=== PATIENT | female | born 1945 | race Caucasian/White ===

== ENCOUNTER 2020-07-27 10:06 | Outpatient (RCR) | payer MEDICARE, OTHER, SELFPAY ==
--- NOTE | 2020-07-27 15:05 | MHC.PT.EP ---
[facility] [place] [facility] [place] [facility] [place] [facility] [address] Barbara Henson [address] [phone] F: [phone] F: [phone] F: [phone] F: [phone] Physical Therapy Plan of Care Date of Evaluation: Date of Surgery: Diagnosis: dizziness/imbalance Assessment: The patient arrived reporting imbalance with position change and whole body movement. She is negative for positional vertigo, but she is showing clear signs of vestibular hypofunction. She has imbalance on soft surfaces and with NBOS and a weakness in her VOR. She is also having loss of hearing, fullness in ears, and constant water in my ear which may indicate a Labyrinthitis. She is an excellent candidate for skilled PT Frequency and Duration: The patient will be seen 2x/week x 4 weeks. Short Term Goals: Pt to be able to move in her kitchen without LOB. Pt to be able to get dressed and perform basic ADL's without loss of balance. Skilled Nursing Goals: 1. pt to be able to return to community ambulation safely without significant veering or loss of balance one week prior to d/c. 2. For the patient to be able to functionally move in all planes and directions without provocation of dizziness to show return to PLOF. 3. pt to be able to show good static standing with no LOB with v/h/d head turns to show functional static balance. Treatment Plan: Modalities to reduce pain, spasms and effusion. Manual therapy to restore motion and function. Therapeutic exercise to improve strength and flexibility. Neuromuscular re-education for posture and balance. Therapeutic activities to return to functional activities of daily living. Electronically signed by: Amee Reyna PT DPT Please sign and return to therapist. Thank you for your referral.
== END 2020-12-01 09:31 | disposition home or self-care (01) ==
LOC: HO.PT 10:06
PROVIDERS: PCP Internal Medicine; Visit Provider Internal Medicine
DX: R42 Dizziness and giddiness (principal)
CPT/HCPCS: 97112; 97162

== ENCOUNTER 2020-08-05 12:50 | Outpatient (REF) | payer MEDICARE, OTHER, SELFPAY ==
--- NOTE | ~2020-08-05 | MM_ITS ---
EXAMINATION: BONE DENSITOMETRY CLINICAL INDICATION: Menopause. COMPARISON: None (current study represents initial baseline exam). TECHNIQUE: Using a [employer] Software DXA System (software version: 13.1) manufactured by [employer], dual-energy x-ray absorptiometry was performed of the lumbar spine and right hip. Patient with left hip replacement. The images are of good technical quality. Summary results are attached. FINDINGS: AP SPINE L1-L4: BMD 1.061 g/cm2, Z-score 0.5, T-score -1.0, normal. RIGHT FEMUR, NECK: BMD 0.791 g/cm2, Z-score 0.0, T-score -1.8, osteopenia. RIGHT FEMUR, TOTAL: BMD 0.864 g/cm2, Z-score 0.5, T-score -1.1, osteopenia. IDENTIFIED RISK FACTORS: Menopause, history of fracture (adult). HISTORY OF FRACTURE: Elbow, wrist. MEDICATIONS: Calcium or multivitamin. Vitamin D. MM/XR DEXA axial skeleton IMPRESSION: 1. DIAGNOSIS: Osteopenia based on the lowest T-score value of -1.8 in the femoral neck applying World Health Organization criteria. 2. 10-YEAR FRACTURE RISK PREDICTION, FRAX: Major osteoporotic fracture (clinical spine, forearm, hip or shoulder) 19.1%. Hip fracture 4.3%. 3. Treatment Recommendations: NOF guidelines recommend consideration for treatment in postmenopausal women and men age 50 and older presenting with the following: -A hip or vertebral (clinical or morphometric) fracture. -T-score less than or equal to -2.5 at the femoral neck or spine after appropriate evaluation to exclude secondary causes. -Low bone mass at the hip or spine and a 10-year fracture probability by FRAX of greater than or equal to 3% for hip fracture or greater than or equal to 20% for major osteoporotic fracture based on the [place] adapted WHO algorithm. 4. Other Recommendations: All treatment decisions require clinical judgment and consideration of individual patient factors, including patient preferences, comorbidities, previous drug use, risk factors not captured in the FRAX model (e.g. frailty, falls, vitamin D deficiency, increased bone turnover, interval significant decline in bone density) and possible under or overestimation of fracture risk by FRAX. Additional medical evaluation for secondary cause of low bone mineral density may be appropriate. FUTURE SCAN RECOMMENDATION: People with diagnosed cases of osteoporosis or at high risk for fracture should have regular bone mineral density tests. For patients eligible for Medicare, routine testing is allowed once every 2 years. The testing frequency can be increased to one year for patients who have rapidly progressing disease, those who are receiving or discontinuing medical therapy to restore bone mass, or have additional risk factors.
== END 2020-08-05 12:51 | disposition home or self-care (01) ==
LOC: HO.MAMMO 12:50
PROVIDERS: Visit Provider Internal Medicine
DX: Z13.820 Encounter for screening for osteoporosis (principal); Z78.0 Asymptomatic menopausal state
CPT/HCPCS: 77080

== ENCOUNTER 2022-10-25 07:11 | Outpatient (REF) | payer MEDICARE, SELFPAY ==
[2022-10-25 07:38] LABS: Alanine Aminotransferase 29 U/L (0-31); Albumin Level 4.5 g/dL (3.5-5.0); Alkaline Phosphatase 64 U/L (39-117); Anion Gap 15 (12-20); Aspartate Amino Transferase 22 U/L (5-31); Bilirubin Total 0.8 mg/dL (0.0-1.0); Blood Urea Nitrogen 13 mg/dL (9-16); Calcium 9.9 mg/dL (8.4-10.2); Carbon Dioxide 23 mmol/L (22-29); Chloride 109 mmol/L (96-108); Cholesterol 230 mg/dL; Estimated Glomerular Filt Rate > 60; Glucose Fasting 96 mg/dL (60-99); HDL Cholesterol 59 mg/dL; LDL Cholesterol Calculated 145 mg/dl; Potassium 4.3 mmol/L (3.3-5.1); Sodium 143 mmol/L (135-145); Total Protein 6.9 g/dL (6.5-8.0); Triglycerides 134 mg/dL
== END 2022-10-25 07:12 | disposition home or self-care (01) ==
LOC: HO.LAB 07:11
PROVIDERS: PCP Internal Medicine; Visit Provider Internal Medicine
DX: E78.5 Hyperlipidemia, unspecified (principal); I10 Essential (primary) hypertension
CPT/HCPCS: 36415; 80053; 80061

== ENCOUNTER 2022-11-07 12:22 | Outpatient (AMB) | payer MEDICARE, SELFPAY ==
--- NOTE | 2022-11-07 13:36 | AM.OFFWIN_ITS ---
Intake Vital Signs 11/07/22 13:38 Weight 170 lb BP 140/88 H Blood Pressure Location Rt brachial Position Sitting Pulse 88 Pulse Source Pulse Oximeter Temp 97.5 F Temp Source Oral Pulse Oximetry (%) 97 Oxygen Delivery Method Room Air Intake Visit Reasons: EST/righ rib pain/possible sinus infection Intake Note: Patient here for sinus drainage for about 1 month. She also states that she has right rib pain. Patient Tobacco Use Status: Never used Tobacco Allergies Sulfa (Sulfonamide Antibiotics) Allergy (Intermediate, Verified 11/07/22 13:40) hives benzonatate Adverse Reaction (Intermediate, Verified 11/07/22 13:40) Eye burning Medication List - Last Reconciled 11/07/22 by Austen Goddard MD albuterol sulfate 90 mcg/actuation 1 inh inhalation QID PRN alprazolam 0.5 mg PO TID PRN amlodipine 5 mg PO DAILY atorvastatin 20 mg PO BEDTIME 90 days azithromycin For 250 mg dose pack: take 500 mg today (day 1), then 250 mg for 4 days (days 2-5) PO benzonatate 200 mg PO TID 5 days codeine-guaifenesin 10-100 mg/5 mL 5 mL PO Q6H PRN 7 days fluoxetine 20 mg PO DAILY gabapentin 100 mg PO BID meclizine 25 mg PO TID PRN 30 days valacyclovir 1,000 mg PO TID Do you need a note to return to daycare/school/sports/work: No HPI EST/righ rib pain/possible sinus infection HPI Details Patient presents for a sick visit. Reporting symptoms of sinus congestion, sore throat and difficulty swallowing. Low-grade fever. No family member is sick. No recent travel. Patient reports symptoms of malaise and fatigue. [facility] Medical History (Updated 10/29/22 @ 11:06 by Pushpa Rob MD) Breast cancer Depression with anxiety Dizziness Essential hypertension Obese Postmenopausal Surgical History History of hip replacement History of lumpectomy of right breast Family History Father Coronary artery disease Mother Alzheimer disease Breast cancer Social History Alcohol intake: current Alcohol intake frequency: holidays/special occasions only Alcohol type: wine Patient Tobacco Use Status: Never used Tobacco Cognitive needs: No Hearing needs: No Vision needs: No Physical Exam Vital Signs: Last Vital Signs Temp 97.5 F 11/07/22 13:38 Pulse 88 11/07/22 13:38 BP 140/88 H 11/07/22 13:38 Pulse Ox 97 11/07/22 13:38 Oxygen Delivery Method Room Air 11/07/22 13:38 Const General: cooperative and healthy appearing Nutritional Appearance: well nourished Orientation/consciousness: patient oriented x3 Limitations: no limitations HEENT Head: Yes normal to inspection Eyes General: appearance normal, both eyes and all related structures Neck Neck: Yes normal visual inspection Chest Chest palpation & inspection: normal palpation of entire chest wall Resp Effort & Inspection: normal respiratory effort Neuro General: patient oriented x3 Assessment & Plan Assessment & Plan (1) Bronchitis: Code(s): J40 - Bronchitis, not specified as acute or chronic Plan: Antibiotics ordered. Increase fluid intake. Tylenol for aches and pains. If symptoms worsen, follow-up here for a recheck. Coding Level of Care Code Est Pt Level 3 (56840) Diagnoses Bronchitis J40
[2022-11-07 13:38] VITALS: BP 140/88; PULSE 88; TEMP 36.4; O2SAT 97
== END 2022-11-07 14:15 | disposition home or self-care (01) ==
PROVIDERS: PCP Internal Medicine; Visit Provider Internal Medicine
DX: J40 Bronchitis, not specified as acute or chronic (principal)
CPT/HCPCS: 99213

== ENCOUNTER 2023-06-28 10:42 | Outpatient (REF) | payer MEDICARE, SELFPAY ==
[2023-06-28 11:17] LABS: Basophils Percent Auto 0.5 % (0-2); Eosinophils Absolute Auto 0.2 X10*3/uL (0.0-0.4); Hematocrit 43.4 % (37.0-47.0); Hemoglobin 14.1 g/dl (12.0-16.0); Imm Gran Abs Auto 0.01 X10*3/uL (0.00-0.03); Imm Gran Pct Auto 0.1 % (0.0-0.4); Lymphocytes Absolute Auto 2.7 X10*3/uL (1.2-4.9); Lymphocytes Percent Auto 36.3 % (20-40); MANUAL DIFF FLAG SCAN; Mean Corpuscular HGB Conc 32.5 g/dl (31.0-35.0); Mean Corpuscular Hemoglobin 30.8 pg (27.0-33.0); Mean Corpuscular Volume 94.8 fL (80.0-98.0); Monocytes Absolute Auto 0.4 X10*3/uL (0.1-1.2); Monocytes Percent Auto 5.7 % (2-11); Neutrophils Absolute Auto 4.2 x10*3/uL (2.0-8.3); Neutrophils Percent Auto 55.4 % (45-73); PLT CLUMP 1; Red Blood Count 4.58 X10*6/uL (4.20-5.50); Red Cell Distribution Width 13.3 % (11.0-16.0); SCAN SMEAR FLAG 1; White Blood Count 7.5 X10*3/uL (4.8-10.8)
[2023-06-28 11:37] LABS: Platelet Count 190 X10*3/uL (160-400)
[2023-06-28 11:38] LABS: Mean Platelet Volume 10.2 fL (9.4-12.3); SLIDE REVIEW VERIFIED
[2023-06-28 11:50] LABS: Cholesterol 141 mg/dL (<200); HDL Cholesterol 60 mg/dL (>40); LDL Cholesterol Calculated 58 mg/dL (<100); Triglycerides 116 mg/dL (<150)
== END 2023-06-28 10:43 | disposition home or self-care (01) ==
LOC: HO.LAB 10:42
PROVIDERS: PCP Internal Medicine; Visit Provider Internal Medicine
DX: E78.5 Hyperlipidemia, unspecified (principal); D64.9 Anemia, unspecified; C91.10 Chronic lymphocytic leukemia of B-cell type not having achieved remission
CPT/HCPCS: 36415; 80061; 85025

== ENCOUNTER 2023-07-04 16:13 | Outpatient (AMB) | payer MEDICARE, SELFPAY ==
--- NOTE | 2023-07-04 16:22 | MHC.PC.OV ---
Vital Signs 07/04/23 16:23 Height 5 ft 2 in Weight 151 lb BMI 27.6 BP 120/82 Blood Pressure Location Lt brachial Position Sitting Intake Visit Reasons: f/u for hip surgery 05/11/23 Intake Note: Patient here for follow up Hip surgery right side Change Director Required: No Accompanied by: Self / Same As Patient Allergies Sulfa (Sulfonamide Antibiotics) Allergy (Intermediate, Verified 07/04/23 16:44) hives benzonatate Adverse Reaction (Intermediate, Verified 07/04/23 16:44) Eye burning Medication List - Last Reconciled 07/04/23 by Pushpa Rob MD amlodipine 5 mg PO DAILY atorvastatin 20 mg PO BEDTIME fluoxetine 20 mg PO DAILY Tobacco use date assessed: 07/04/23 Fall risk assessment: No Falls in past year Last assessed Fall Risk: 07/04/23 Dental Screening Dental Screen Date: 07/04/23 Did you have a dental visit in the last 12 months?: Yes Did you have a dental problem in the last 6 months where you did not have access to dental care?: No Was dental information given to patient?: Patient has dentist HPI HPI Comments History of Present Illness Details This is an 78-year-old female with hypertension, dyslipidemia, mild major depression, history of breast cancer and CLL that comes today for follow-up on her conditions. Blood pressure stable. Lipid panel will be order. Depression well controlled with SSRIs. Breast cancer and CLL are follow by Oncology. Denies any chest pain or shortness a breath. [facility] Medical History (Updated 07/04/23 @ 19:57 by Pushpa Rbo MD) Dizziness Postmenopausal Breast cancer Depression with anxiety Obese Essential hypertension Surgical History (Updated 07/04/23 @ 16:39 by LISANDRA Lee) History of knee surgery History of hip replacement History of lumpectomy of right breast Family History Father Coronary artery disease Mother Alzheimer disease Breast cancer Social History (Updated 07/04/23 @ 16:40 by LISANDRA Lee) Housing: House Alcohol intake: current Alcohol intake frequency: holidays/special occasions only Alcohol type: wine Patient Tobacco Use Status: Never used Tobacco Smoked in Last 30 Days: No e-Cigarette/Vaping Use: Never Used Second Hand Smoke Exposure: No service: No Current occupational status: retired Cognitive needs: No Hearing needs: No Vision needs: No Questionnaire PHQ-9 Over the last 2 weeks, how often have you been bothered by any of the following problems? 1. Little interest or pleasure in doing things: not at all 2. Feeling down, depressed, or hopeless: not at all 3. Trouble falling or staying asleep, or sleeping too much: not at all 4. Feeling tired or having little energy: not at all 5. Poor appetite or overeating: not at all 6. Feeling bad about yourself - or that you are a failure or have let yourself or your family down: not at all 7. Trouble concentrating on things, such as reading the newspaper or watching television: not at all 8. Moving or speaking so slowly that other people could have noticed. Or the opposite - being so fidgety or restless that you have been moving around a lot more than usual: not at all 9. Thoughts that you would be better off or of hurting yourself in some way: not at all Total score: 0 Depression Screening Interpretation: Negative Depression Screening Done: Yes 69730 - PHQ-9 Billing: Yes Source: Developed by Drs. José Luis Gates, Lizzy Bennett, Paulo Pedroza and colleagues, with an educational yanique from [employer] Thrive Questionnaire Date Thrive assessed: 07/04/23 I am a: Patient What is your living situation today?: I have a steady place to live Within the past 12 months, did the food you bought not last and you didn't have the money to get more?: Never true Within the past 12 months, did you worry whether your food would run out before you got money to buy more?: Never true Do you have trouble paying for medicines?: No Do you have trouble getting transportation to medical appointments?: No Do you have trouble paying your heating and electricity bill?: No Do you have trouble taking care of your child, family member or friend?: No Do you have trouble with day-to-day activities such as bathing, preparing meals, shopping, managing finances, etc.?: No Are you currently unemployed and looking for a job?: No Are you interested in more education?: No Please select the resources that you would like help with: None Currently or been in a relationship where the following occur: no concerns reported THRIVE Score: 0 AUDIT C Alcohol Use Questionnaire (AUDIT-C) 1. How often do you have a drink containing alcohol?: Monthly or less 2. How many drinks containing alcohol do you have on a typical day when you are drinking?: 1 or 2 3. How often do you have six or more drinks on one occasion?: Never Total Score: 1 COSME-7 AMB Questionnaire COSME-7 Date COSME - 7 assessed: 07/04/23 Feeling nervous, anxious, or on edge: 0 = Not at all Not being able to stop or control worryin = Not at all Worrying too much about different things: 0 = Not at all Trouble relaxin = Not at all Being so restless that it is hard to sit still: 0 = Not at all Becoming easily annoyed or irritable: 0 = Not at all Feeling afraid as if something awful might happen: 0 = Not at all Total COSME-7 score (0-4 normal; 5-9 mild; 10-14 moderate; 15-21 severe): 0 Source: Developed by Drs. José Luis Gates, Lizzy Bennett, Paulo Pedroza and colleagues, with an educational yanique from [employer] COSME-7 Assessment Billing COSME-7 Assessment Tool: COSME-7 Assessment 80609 Review of Systems Const All systems reviewed & are unremarkable except as noted in HPI and below Eyes Reports no additional complaints, Denies change in vision and Denies other visual disturbances Card Denies chest pain at rest, Denies chest pain with activity, Denies edema, Denies irregular heart rhythm, Denies claudication, Denies dyspnea, Denies dyspnea on exertion, Denies orthopnea, Denies paroxysmal nocturnal dyspnea and Denies slow heart rate Resp Denies cough, Denies dyspnea and Denies dyspnea on exertion GI Denies abdominal pain, Denies change in bowel habits, Denies excessive flatus, Denies nausea and Denies vomiting Denies urinary incontinence, Denies urinary hesitancy and Denies urinary urgency Physical exam (Primary Care) Vital Signs: Last Vital Signs BP 120/82 07/04/23 16:23 BMI result Body Mass Index 27.6 Tobacco/Smoking Status: Tobacco use Status Tobacco use date assessed 07/04/23 07/04/23 16:42 Patient Tobacco Use Status Never used Tobacco 07/04/23 16:40 e-Cigarette/Vaping Use Never Used 07/04/23 16:42 PHQ-9: PHQ-9 Score PHQ-9: Total score 0 07/04/23 16:46 Depression Screening Interpretation: Negative Thrive Assessment: Date of Thrive Assessment Date Thrive assessed 07/04/23 07/04/23 16:42 Currently or been in a relationship where the following occur: no concerns reported Resp Effort & Inspection: normal respiratory effort Auscultation: clear to auscultation bilaterally Cardio Jugular venous distension: no JVD Rate: regular rate Rhythm: regular rhythm Heart sounds: S1 normal heart sound present and S2 normal heart sound present Extrem General: Yes full ROM Psych Appearance: grossly normal Assessment and Plan Assessment & Plan (1) CLL (chronic lymphocytic leukemia): Code(s): C91.10 - Chronic lymphocytic leukemia of B-cell type not having achieved remission Plan: Follow-up with Oncology. (2) Breast cancer: Comment: right breast cancer follow by [facility] Oncology Code(s): C50.919 - Malignant neoplasm of unspecified site of unspecified female breast Plan: Follow-up with oncology. (3) Essential hypertension: Code(s): I10 - Essential (primary) hypertension Plan: Continue amlodipine. Blood pressure goal is equal or less than 130/80. (4) Mild major depression: Code(s): F32.0 - Major depressive disorder, single episode, mild Plan: Continue fluoxetine. (5) Dyslipidemia: Code(s): E78.5 - Hyperlipidemia, unspecified Plan: Continue statins. Orders: Orders Lipid Panel 6 Months E78.5 - Hyperlipidemia, unspecified Comprehensive [place]. Panel Fast 6 Months I10 - Essential (primary) hypertension Coding Level of Care Code Est Pt Level 4 (03449) Diagnoses CLL (chronic lymphocytic leukemia) C91.10 Breast cancer C50.919 Essential hypertension I10 Mild major depression F32.0 Dyslipidemia E78.5 Additional Codes COSME-7 Assessment Billing - COSME-7 Assessment Tool: COSME-7 Assessment 12038 ([id number]) Time Spent (min) 23
[2023-07-04 16:23] VITALS: BP 120/82; BMI 27.6
== END 2023-07-04 17:18 | disposition home or self-care (01) ==
PROVIDERS: PCP Internal Medicine; Visit Provider Internal Medicine
DX: C91.10 Chronic lymphocytic leukemia of B-cell type not having achieved remission (principal); C50.919 Malignant neoplasm of unspecified site of unspecified female breast; I10 Essential (primary) hypertension; F32.0 Major depressive disorder, single episode, mild; E78.5 Hyperlipidemia, unspecified
CPT/HCPCS: 99214

== ENCOUNTER 2023-12-28 09:08 | Outpatient (REF) | payer MEDICARE, SELFPAY ==
[2023-12-28 10:23] LABS: Alanine Aminotransferase 23 U/L (0-31); Albumin Level 4.4 g/dL (3.5-5.0); Alkaline Phosphatase 69 U/L (39-117); Anion Gap 11 (12-20); Aspartate Amino Transferase 19 U/L (5-31); Bilirubin Total 0.6 mg/dL (0.0-1.0); Blood Urea Nitrogen 11 mg/dL (9-16); Calcium 9.8 mg/dL (8.4-10.2); Carbon Dioxide 27 mmol/L (22-29); Chloride 109 mmol/L (96-108); Cholesterol 221 mg/dL (<200); Estimated Glomerular Filt Rate > 60; Glucose Fasting 91 mg/dL (60-99); HDL Cholesterol 65 mg/dL (>40); LDL Cholesterol Calculated 128 mg/dL (<100); Potassium 4.4 mmol/L (3.3-5.1); Sodium 143 mmol/L (135-145); Total Protein 6.6 g/dL (6.5-8.0); Triglycerides 144 mg/dL (<150)
== END 2023-12-28 09:09 | disposition home or self-care (01) ==
LOC: HO.LAB 09:08
PROVIDERS: PCP Internal Medicine; Visit Provider Internal Medicine
DX: I10 Essential (primary) hypertension (principal); E78.5 Hyperlipidemia, unspecified
CPT/HCPCS: 36415; 80053; 80061

== ENCOUNTER 2024-08-14 17:22 | Outpatient (AMB) | payer MEDICARE, SELFPAY ==
--- NOTE | 2024-08-14 17:26 | A.OFFPC_ITS ---
Vital Signs 08/14/24 17:40 Height 5 ft 2 in Weight 152 lb BMI 27.8 BP 152/100 H Blood Pressure Location Lt brachial Position Sitting Intake Visit Reasons: Annual Physical - see comments Intake Note: Patient here for a physical exam Life Cycle Assessment Analyst Required: No Accompanied by: Self / Same As Patient Allergies Sulfa (Sulfonamide Antibiotics) Allergy (Intermediate, Verified 08/14/24 17:55) hives benzonatate Adverse Reaction (Intermediate, Verified 08/14/24 17:55) Eye burning kysqali Adverse Reaction (Intermediate, Uncoded 08/14/24 18:01) Depression Medication List - Last Reconciled 08/14/24 by Pushpa Rob MD amlodipine 5 mg PO DAILY fluoxetine 20 mg PO DAILY 90 days letrozole 2.5 mg PO DAILY rosuvastatin 5 mg PO BEDTIME 90 days trazodone 50 mg PO BEDTIME PRN 30 days Tobacco use date assessed: 08/14/24 Fall risk assessment: No Falls in past year Last assessed Fall Risk: 08/14/24 Dental Screening Dental Screen Date: 08/14/24 Did you have a dental visit in the last 12 months?: Yes Did you have a dental problem in the last 6 months where you did not have access to dental care?: No Was dental information given to patient?: Patient has dentist HPI HPI Comments History of Present Illness Details The patient is an 79-year-old female presenting for her physical exam. She was previously prescribed this for her history of breast cancer but developed severe depression, anxiety, and thinning hair as side effects of Kisqali. On stopping the medication three weeks ago, she reports significant improvement in her emotional state, focus, and overall sense of well-being. She has a complicated medical history that includes osteoarthritis, osteopenia, and spinal stenosis. Surgical history includes hip and knee replacements, with a recent trigger finger release due to severe arthritis. She now manages her arthritis with Tylenol due to severe drug allergies, including sulfa drugs. She has also been utilizing cortisone injections for knee pain associated with osteoarthritis, though her last injection appointment was postponed. Cardiovascular history includes essential hypertension and hyperlipidemia, for which she takes Amlodipine and Rosuvastatin respectively. Her breast cancer is in remission, and she continues Letrozole as part of her management regime. She takes Trazodone to aid in sleep, previously benefitting during the heightened anxiety and depressive episodes linked to Kisqali. She actively participates in weight management and adjusts her lifestyle practices as needed, having experienced success with prior structured diet programs. Notably, her social habits have shifted post-cancer diagnosis, giving up alcohol and never having smoked, aligning with her health-conscious goals. - Pneumonia vaccination confirmed. - Regular EKGs performed monthly, result s not specified but documented. - CBC, comprehensive metabolic panel, ma gnesium, phosphorus, bone scan, and o ther tests reviewed for health monitoring. - Continuous medication management for h ypertension, hyperlipidemia, and breast cancer prevention. - Engaged in weight management programs and healthy lifestyle changes post- cancer diagnosis. [facility] Medical History (Updated 08/14/24 @ 18:13 by Pushpa Rob MD) CLL (chronic lymphocytic leukemia) Dizziness Postmenopausal Breast cancer Depression with anxiety Obese Essential hypertension Surgical History (Updated 08/14/24 @ 18:03 by Pushpa Rob MD) S/P trigger finger release History of knee surgery History of hip replacement History of lumpectomy of right breast Family History (Updated 08/14/24 @ 17:29 by Sarthak Barry Rashaad) Father Coronary artery disease Mother Alzheimer disease Social History (Updated 08/14/24 @ 18:04 by Pushpa Rob MD) Housing: House Alcohol intake: former Patient Tobacco Use Status: Never used Tobacco e-Cigarette/Vaping Use: Never Used Second Hand Smoke Exposure: No service: No Current occupational status: retired Cognitive needs: No Hearing needs: No Vision needs: No Questionnaire PHQ-9 Over the last 2 weeks, how often have you been bothered by any of the following problems? 1. Little interest or pleasure in doing things: not at all 2. Feeling down, depressed, or hopeless: not at all 3. Trouble falling or staying asleep, or sleeping too much: not at all 4. Feeling tired or having little energy: not at all 5. Poor appetite or overeating: not at all 6. Feeling bad about yourself - or that you are a failure or have let yourself or your family down: not at all 7. Trouble concentrating on things, such as reading the newspaper or watching television: not at all 8. Moving or speaking so slowly that other people could have noticed. Or the opposite - being so fidgety or restless that you have been moving around a lot more than usual: not at all 9. Thoughts that you would be better off or of hurting yourself in some way: not at all Total score: 0 Depression Screening Interpretation: Negative Depression Screening Done: Yes 97721 - PHQ-9 Billing: Yes Source: Developed by Drs. José Luis Gates, Lizzy Bennett, Paulo Pedroza and colleagues, with an educational yanique from [employer]. Thrive Questionnaire Date Thrive assessed: 08/14/24 I am a: Patient What is your living situation today?: I have a steady place to live Within the past 12 months, did the food you bought not last and you didn't have the money to get more?: Never true Within the past 12 months, did you worry whether your food would run out before you got money to buy more?: Never true Do you have trouble paying for medicines?: No Do you have trouble getting transportation to medical appointments?: No Do you have trouble paying your heating and electricity bill?: No Do you have trouble taking care of your child, family member or friend?: No Do you have trouble with day-to-day activities such as bathing, preparing meals, shopping, managing finances, etc.?: No Are you currently unemployed and looking for a job?: No Are you interested in more education?: No Please select the resources that you would like help with: None Currently or been in a relationship where the following occur: No concerns reported THRIVE Score: 0 AUDIT C Alcohol Use Questionnaire (AUDIT-C) 1. How often do you have a drink containing alcohol?: Never Total Score: 0 Score Reviewed/Action Taken: No COSME-7 AMB Questionnaire COSME-7 Date COSME - 7 assessed: 08/14/24 Feeling nervous, anxious, or on edge: 0 = Not at all Not being able to stop or control worryin = Not at all Worrying too much about different things: 0 = Not at all Trouble relaxin = Not at all Being so restless that it is hard to sit still: 0 = Not at all Becoming easily annoyed or irritable: 0 = Not at all Feeling afraid as if something awful might happen: 0 = Not at all Total COSME-7 score (0-4 normal; 5-9 mild; 10-14 moderate; 15-21 severe): 0 Source: Developed by Drs. José Luis Gates, Lizzy Bennett, Paulo Pedroza and colleagues, with an educational yanique from [employer]. Review of Systems Const All systems reviewed & are unremarkable except as noted in HPI and below Card Denies chest pain at rest, Denies chest pain with activity, Denies edema, Denies irregular heart rhythm, Denies claudication, Denies dyspnea, Denies dyspnea on exertion, Denies orthopnea, Denies paroxysmal nocturnal dyspnea and Denies slow heart rate Resp Denies cough, Denies dyspnea and Denies dyspnea on exertion Denies urinary incontinence, Denies urinary hesitancy and Denies urinary urgency Musc Denies abnormal gait, Denies atrophy, Denies deformity and Denies limited range of motion Skin/Breast Denies bleeding lesions, Denies changing lesions and Denies rash Neuro Denies abnormal gait, Denies behavioral changes, Denies confusion and Denies lack of coordination Psych Denies behavioral changes and Denies confusion Physical exam (Primary Care) Vital Signs: Last Vital Signs BP 152/100 H 08/14/24 17:40 BMI result Body Mass Index 27.8 Tobacco/Smoking Status: Tobacco use Status Tobacco use date assessed 08/14/24 08/14/24 17:33 Patient Tobacco Use Status Never used Tobacco 08/14/24 17:30 e-Cigarette/Vaping Use Never Used 08/14/24 17:30 PHQ-9: PHQ-9 Score PHQ-9: Total score 0 08/14/24 18:06 Depression Screening Interpretation: Negative Thrive Assessment: Date of Thrive Assessment Date Thrive assessed 08/14/24 08/14/24 17:30 Currently or been in a relationship where the following occur: No concerns reported Const General: No confusion Orientation/consciousness: patient oriented x3 and No confusion HENMT Head: Yes normal to inspection, Yes normocephalic and Yes atraumatic Ears: external ears normal Eyes General: appearance normal, both eyes and all related structures Eyelids: Yes eyelids normal Conjunctivae: conjunctivae normal Neck Neck: Yes normal visual inspection and Yes supple Resp Effort & Inspection: normal respiratory effort Auscultation: clear to auscultation bilaterally Cardio Jugular venous distension: no JVD Rate: regular rate Rhythm: regular rhythm Heart sounds: S1 normal heart sound present and S2 normal heart sound present GI Inspection: Yes normal to inspection Palpation (GI): Soft to palpation and nontender Auscultation: normal bowel sounds Skin General skin exam: no rashes or lesions noted Neuro General: patient oriented x3, no focal motor deficits and No confusion Extrem General: Yes full ROM Psych Appearance: grossly normal Coding Level of Care Code Est Pt Prev Care >65y(77587) Diagnoses Physical exam Z00.00 Mild major depression F32.0 Breast cancer C50.919 Additional Codes PHQ-9 - 84171 - PHQ-9 Billing: Yes ([id number]) Time Spent (min) 35 Assessment & Plan Assessment & Plan (1) Physical exam: Code(s): Z00.00 - Encounter for general adult medical examination without abnormal findings Category: Medical (2) Mild major depression: Code(s): F32.0 - Major depressive disorder, single episode, mild Category: Medical (3) Breast cancer: Comment: right breast cancer follow by [facility] Oncology Code(s): C50.919 - Malignant neoplasm of unspecified site of unspecified female breast Category: Medical Plan We discussed the improved symptoms post-Kisqali discontinuation, maintaining her other medications as there are no reported side effects. Her lifestyle mo difications remain instrumental for weight management, and further pharmaceutical interventions are deferred to avoid exacerbating issues. Osteoarthritis is managed conservatively, awaiting rescheduling of her corticosteroid injection. Follow-up includes reassessment of blood pressure, bone density testing, and continued management for her chronic conditions in a multidisciplinary approach while she self-monitors her blood pressure. Telehealth consultations will be utilized where possible to align with patient comfort and accessibility. Patient was informed and verbally consented to the use of an ambient scribe for clinic note documentation during this visit. I spoke with the patient about the discontinuation of Kisqali, noting her improved mental health. I recommended continuing with her current medication plan, prioritizing minimal side-effect options. We discussed the benefits of lifestyle modification over medication for weight management given her past success. We planned further investigation into her essential hypertension and osteopenia through follow-up bone density scans. The patient agreed to a telehealth appointment for ongoing blood pressure management. There was di scussion regarding the patient's significant improvement in function and mood following medication changes. Orders: Orders Lipid Panel Today E78.5 - Hyperlipidemia, unspecified Vitamin D 25-OH Total Today E55.9 - Vitamin D deficiency, unspecified XR DEXA axial skeleton Today Z78.0 - Asymptomatic menopausal state Comprehensive [place]. Panel Fast Today Z00.00 - Encounter for general adult medical examination without abnormal findings Patient Instructions: - Continue taking all current medications as prescribed. - Practice healthy lifestyle choices and continue with diet and exercise modifications. - Monitor blood pressure daily and keep a log for three weeks. - Prepare for follow-up telehealth visit regarding blood pressure. - Seek knee injection rescheduling for osteoarthritis pain relief. - Alert medical team to any new symptoms or concerns. - Avoid medications that previously caused allergic reactions.
[2024-08-14 17:40] VITALS: BP 152/100; BMI 27.8
== END 2024-08-14 18:12 | disposition home or self-care (01) ==
LOC: HO.HMCH 17:23
PROVIDERS: PCP Internal Medicine; Visit Provider Internal Medicine
DX: Z00.00 Encounter for general adult medical examination without abnormal findings (principal); F32.0 Major depressive disorder, single episode, mild; C50.919 Malignant neoplasm of unspecified site of unspecified female breast

== ENCOUNTER → 2024-08-14 17:22 | Outpatient (BNVA) | payer MEDICARE, SELFPAY | PROVIDERS: PCP Internal Medicine; Visit Provider Internal Medicine | DX: Z00.00 Encounter for general adult medical examination without abnormal findings (principal); F32.0 Major depressive disorder, single episode, mild; Z85.3 Personal history of malignant neoplasm of breast; Z78.0 Asymptomatic menopausal state | CPT/HCPCS: 96127; 99397 ==

== ENCOUNTER 2024-09-20 10:15 | Outpatient (REF) | payer MEDICARE, SELFPAY ==
--- NOTE | ~2024-09-20 | MM_ITS ---
EXAMINATION: DXA BONE DENSITY AXIAL HISTORY: Z78.0 - Asymptomatic menopausal state TECHNIQUE: [employer] Dual energy absorptiometry (DEXA) of the lumbar spine and distal radius was performed. The hips were not evaluated due to a history of bilateral total hip arthroplasty. COMPARISON: Comparison is made with the prior examination dated 08/05/2020. FINDINGS: The bone mineral density of the lumbar spine is 1.195, corresponding to a T-score of 0.1, and a Z-score of 1.8. This is indicative of normal bone mineral density. This represents a BMD change of 12.6% compared to the prior exam. This is statistically significant. The bone mineral density of the distal radius is 0.742, corresponding to a T-score of -1.5, and a Z-score of 1.3. This is indicative of osteopenia. MM/XR DEXA axial skeleton IMPRESSION: Based on bone mineral density, and according to World Health Organization (WHO) criteria, the diagnosis is consistent with osteopenia. All bone density values are in grams per centimeter squared (g/cm2). Statistically, 68% of repeat scans fall within 1 SD (+/- 0.010 g/cm2 for AP spine L1-L4) and 1 SD (+/- 0.012 g/cm2 for femur total) FRAX is a trademark of the [employer] [facility] [employer], a World Health Organization (WHO) Collaborating Center. Electronically signed by: José Luis Alejandra MD 09/20/2024 11:08 AM EDT
--- OUTSIDE RECORDS SUMMARY | 2024-09-20 10:57 | XMS_ITS ---
Author Name [facility] Organization Unknown History of Medication Use Medication Directions Dispensed Refills Start Date End Date Stat lidocaine (PF) 100 mg/5 mL (2 %) injection syringe Take 4 mL by injection route. 05/10/2024 active lidocaine (PF) 100 mg/5 mL (2 %) injection syringe Take 4 mL by injection route. 05/10/2024 active Marcaine (PF) 0.5 % (5 mg/mL) injection solution Take 4 mL by injection route. 05/10/2024 active Marcaine (PF) 0.5 % (5 mg/mL) injection solution Take 4 mL by injection route. 05/10/2024 active triamcinolone acetonide 40 mg/mL suspension for injection Take 40 mg by injection route. 05/10/2024 active triamcinolone acetonide 40 mg/mL suspension for injection Take 40 mg by injection route. 05/10/2024 active lidocaine (PF) 100 mg/5 mL (2 %) injection syringe active triamcinolone acetonide 40 mg/mL suspension for injection active Marcaine (PF) 0.5 % (5 mg/mL) injection solution active Marcaine (PF) 0.5 % (5 mg/mL) injection solution active triamcinolone acetonide 40 mg/mL suspension for injection active lidocaine (PF) 100 mg/5 mL (2 %) injection syringe active acetaminophen 325 mg tablet TAKE 2 TABLETS BY MOUTH EVERY 4 HOURS FOR 7 DAYS active acetaminophen 325 mg tablet TAKE 2 TABLETS BY MOUTH EVERY 4 HOURS FOR 7 DAYS active amlodipine 5 mg tablet TAKE 1 TABLET BY MOUTH DAILY active amlodipine 5 mg tablet TAKE 1 TABLET BY MOUTH DAILY active amoxicillin 500 mg tablet TAKE 4 TABLETS 1 HOUR BEFORE DENTAL PROCEDURE active amoxicillin 500 mg tablet TAKE 4 TABLETS 1 HOUR BEFORE DENTAL PROCEDURE active atorvastatin 20 mg tablet TAKE 1 TABLET BY MOUTH AT BEDTIME active atorvastatin 20 mg tablet TAKE 1 TABLET BY MOUTH AT BEDTIME active betamethasone valerate 0.1 % topical ointment APPLY TO AFFECTED AREA TWICE A DAY active cephalexin 500 mg capsule TAKE 1 CAPSULE BY MOUTH EVERY 12 HOURS active cephalexin 500 mg capsule TAKE 1 CAPSULE BY MOUTH EVERY 12 HOURS active fluoxetine 20 mg capsule TAKE 1 CAPSULE BY MOUTH EVERY DAY active fluoxetine 20 mg capsule TAKE 1 CAPSULE BY MOUTH EVERY DAY active ibuprofen 600 mg tablet TAKE 1 TABLET BY MOUTH EVERY 8 HOURS FOR 7 DAYS NEEDED FOR MODERATE PAIN active ibuprofen 600 mg tablet TAKE 1 TABLET BY MOUTH EVERY 8 HOURS FOR 7 DAYS NEEDED FOR MODERATE PAIN active letrozole 2.5 mg tablet TAKE 1 TABLET BY MOUTH EVERY DAY active letrozole 2.5 mg tablet TAKE 1 TABLET BY MOUTH EVERY DAY active lidocaine 4 % topical cream PLEASE SEE ATTACHED FOR DETAILED DIRECTIONS active lidocaine 4 % topical cream PLEASE SEE ATTACHED FOR DETAILED DIRECTIONS active meloxicam 7.5 mg tablet TAKE 1 TABLET BY MOUTH TWICE A DAY active meloxicam 7.5 mg tablet TAKE 1 TABLET BY MOUTH TWICE A DAY active omeprazole 20 mg capsule,delayed release TAKE 1 CAPSULE BY MOUTH DAILY. STOP TAKING WHEN ASPIRIN AND/OR NSAIDS ARE DISCONTINUED. active omeprazole 20 mg capsule,delayed release TAKE 1 CAPSULE BY MOUTH DAILY. STOP TAKING WHEN ASPIRIN AND/OR NSAIDS ARE DISCONTINUED. active oxycodone 5 mg tablet PLEASE SEE ATTACHED FOR DETAILED DIRECTIONS active oxycodone 5 mg tablet PLEASE SEE ATTACHED FOR DETAILED DIRECTIONS active rosuvastatin 5 mg tablet TAKE 1 TABLET (5 MG) ORALLY BEDTIME FOR 90 DAYS active rosuvastatin 5 mg tablet TAKE 1 TABLET (5 MG) ORALLY BEDTIME FOR 90 DAYS active trazodone 50 mg tablet TAKE 1 TABLET ORALLY AT BEDTIME NEEDED FOR SLEEP FOR 30 DAYS active trazodone 50 mg tablet TAKE 1 TABLET ORALLY BEDTIME NEEDED FOR SLEEP FOR 30 DAYS active Allergies Allergen Reaction Severity Comment Documented Date Source Statu s SULFA (SULFONAMIDE ANTIBIOTICS) [facility] Problems Problem Status Onset Date Problem Type Date of Resoluti on Source Trigger thumb of left hand active 2024-07-24 ProblemAct [facility] Osteoarthritis of right knee joint active 2024-05-10 ProblemAct [facility] Encounters Encounter Type Encounter Reason Primary Diagnosis Location Date Ambulatory [facility] [place] 08/21/2024 Ambulatory [facility] [place] 08/21/2024 Ambulatory [facility] [place] 08/21/2024 Ambulatory [facility] [place] 08/07/2024 Ambulatory [facility] [place] 08/07/2024 Ambulatory ROUTINE Trigger thumb, l eft thumb [facility] [place] 07/25/2024 Ambulatory [facility] [place] 07/25/2024 Ambulatory [facility] [place] 07/24/2024 Ambulatory [facility] [place] 07/24/2024 Ambulatory [facility] [place] 07/02/2024 Ambulatory [facility] [place] 05/13/2024 Ambulatory [facility] [place] 05/10/2024 Ambulatory [facility] [place] 05[facility]10/2024 Ambulatory [facility] [place] 05/10/2024 Ambulatory [facility] [place] 05/10/2024 Ambulatory [facility] [place] 04/29/2024 Care Team Organization Name Specialty Phone Email Start Date End Da te [facility] [place] 2024 [facility] [place] 2024
== END 2024-09-20 10:16 | disposition home or self-care (01) ==
LOC: HO.MAMMO 10:15
PROVIDERS: PCP Internal Medicine; Visit Provider Internal Medicine
DX: Z13.820 Encounter for screening for osteoporosis (principal); Z78.0 Asymptomatic menopausal state
CPT/HCPCS: 77080

== ENCOUNTER → 2024-09-20 10:30 | Outpatient (BNV) | payer MEDICARE, SELFPAY | PROVIDERS: PCP Internal Medicine; Visit Provider Radiology Diagnostic Radiology | DX: E28.39 Other primary ovarian failure (principal) | CPT/HCPCS: 77080 ==